=== PATIENT | female | born 1960 | race Caucasian/White ===

== ENCOUNTER 2018-02-27 12:51 | Outpatient (CLI) | payer OTHER | END 2018-02-27 13:14 | disposition home or self-care (01) | LOC: MAMO-SONO 12:51 | DX: Z12.31 Encounter for screening mammogram for malignant neoplasm of breast (principal); N64.4 Mastodynia ==

== ENCOUNTER 2019-03-01 12:00 | Outpatient (CLI) | payer OTHER | END 2019-03-01 17:00 | disposition home or self-care (01) | LOC: MAMO-SONO 12:00 | DX: N64.4 Mastodynia (principal); Z12.31 Encounter for screening mammogram for malignant neoplasm of breast ==

== ENCOUNTER 2021-04-20 13:05 | Inpatient (IN) | payer OTHER ==
[~2021-04-20] VITALS: Ht 170.2 cm; Wt 58.1 kg
[2021-04-20] MEDS ORDERED: DICYCLOMIN10 MG/5 M1 (13:21)
[2021-04-20] MEDS ORDERED: ACID REDUCER20 M1 (13:21)
== END 2021-04-21 13:48 | disposition home or self-care (01) | DRG 343 ==
LOC: ER 13:05 → SEC-K 18:31 → O/R 18:31 → SURG 21:54
PROVIDERS: ADMIT Surgery; ATTEND Surgery
PROC: 0DTJ4ZZ Resection of Appendix, Percutaneous Endoscopic Approach (ICD-10-PCS; principal; 2021-04-20 20:00)
DX: K35.891 Other acute appendicitis without perforation, with gangrene (principal); E06.3 Autoimmune thyroiditis

== ENCOUNTER 2021-10-17 11:04 | Outpatient (CLI) | payer OTHER ==
[~2021-10-17 11:04] MED LIST: ACID REDUCER20 M1; DICYCLOMIN10 MG/5 M1
== END 2021-10-17 11:11 | disposition home or self-care (01) ==
LOC: MAMO-SONO 11:04
PROVIDERS: ATTEND Obstetrics & Gynecology Obstetrics
DX: R92.1 Mammographic calcification found on diagnostic imaging of breast (principal); Z12.31 Encounter for screening mammogram for malignant neoplasm of breast; N64.4 Mastodynia

== ENCOUNTER 2023-02-13 13:35 | Outpatient (CLI) | payer OTHER | END 2023-02-13 13:48 | disposition home or self-care (01) | LOC: MAMO-SONO 13:35 | PROVIDERS: ATTEND Obstetrics & Gynecology Obstetrics | DX: Z12.31 Encounter for screening mammogram for malignant neoplasm of breast (principal); N64.4 Mastodynia ==